=== PATIENT | male | born 1965 | race Asian ===

== ENCOUNTER 2019-10-31 06:17 | Emergency (ER) | payer BC ==
[~2019-10-31] VITALS: Ht 160 cm; Wt 78.0 kg
[2019-10-31 06:22] VITALS: Ht 160 cm; Wt 78.0 kg
[2019-10-31 07:09] LABS: BASOPHIL % 0 % (0-2); PLATELET COUNT 265 x10^3mcL (130-400); RED CELL DISTRIBUTION WIDTH 13.4 % (11.5-14.5)
[2019-10-31 08:15] LABS: CALCIUM 8.9 mg/dL (8.5-10.1); CARBON DIOXIDE 28.8 mmol/L (21-32); CREATININE SERUM 1.4 mg/dL (0.7-1.3)
[2019-10-31 08:19] LABS: ALBUMIN 4.1 g/dL (3.4-5.0); BILIRUBIN TOTAL 0.6 mg/dL (0.20-1.00); TOTAL PROTEIN, SERUM 7.7 g/dL (6.4-8.2)
[2019-10-31 09:21] VITALS: BP 147/87
== END 2019-10-31 09:19 | disposition home or self-care (01) ==
LOC: ED 06:17
PROVIDERS: Emergency Medicine
DX: N20.0 Calculus of kidney (principal)
CPT/HCPCS: J1885; J2405; J7030